=== PATIENT | female | born 1950 | race Caucasian/White ===

== ENCOUNTER 2016-04-05 14:59 | Inpatient (IN) | payer MEDICARE, OTHER ==
[~2016-04-05] VITALS: Ht 157.5 cm; Wt 99.9 kg
[2016-04-05] MEDS ORDERED: SOD CHLORIDE 0.9% 1,000 ML IV STA (17:26)
[2016-04-05] MEDS ORDERED: DILTIAZEM 25 MG INJ IV ONE (17:30)
[2016-04-05] MEDS ORDERED: ASPIRIN 81 MG TAB PO ONE (17:30)
[2016-04-05] MEDS ORDERED: TRAM-40 PO (17:36)
[2016-04-05] MEDS ORDERED: PRAM0.753 PO (17:39)
[2016-04-05] MEDS ORDERED: LEVO100T82 PO (17:39)
[2016-04-05] MEDS ORDERED: OMEP40CA6 PO (17:39)
[2016-04-05] MEDS ORDERED: MIN10 PO (17:40)
[2016-04-05 17:49] LABS: ADD SCAN DIFF NO
--- NOTE | 2016-04-05 17:51 | RADRPT ---
PROCEDURE: XR Chest. CLINICAL INDICATION: Shortness of breath. TECHNIQUE: A single portable view of the chest was obtained. COMPARISON: None FINDINGS: The cardiomediastinal silhouette is within normal limits. The lungs and pleural spaces are clear. The soft tissues and osseous structures are unremarkable. IMPRESSION: No acute cardiopulmonary disease. RPTAT: HPNM Physician Joel Date Time Electronically viewed and signed by Alek Salinas Physician on 04/05/2016 17:50 /
[2016-04-05 17:58] LABS: BASOPHILS % 0.3 % (0.0-2.0); EOSINOPHILS # 0.2 10^3/ul (0.0-0.5); EOSINOPHILS % 2.3 % (0.0-7.0); HEMATOCRIT 38.4 % (37.0-47.0); HEMOGLOBIN 12.8 g/dl (12.0-16.0); LYMPHOCYTES # 2.4 10^3/ul (0.8-2.9); LYMPHOCYTES % 34.4 % (15.0-51.0); MEAN CORPUSCULAR HEMOGLOBIN 28.3 pg (29.0-33.0); MEAN CORPUSCULAR HGB CONC 33.3 g/dl (32.0-37.0); MEAN PLATELET VOLUME 9.4 fl (7.4-10.4); MONOCYTE # 0.6 10^3/ul (0.3-0.9); MONOCYTES % 7.8 % (0.0-11.0); NEUTROPHIL # 3.9 10^3/ul (1.6-7.5); NEUTROPHILS % 55.1 % (39.0-77.0); PLATELET COUNT 286 10^3/UL (140-415); RED BLOOD COUNT 4.52 10^6/ul (4.20-5.40); RED CELL DISTRIBUTION WIDTH 12.4 % (11.5-14.5); WHITE BLOOD COUNT 7.1 10^3/ul (4.8-10.8)
[2016-04-05 18:01] LABS: ALBUMIN 3.8 g/dl (3.3-4.9); CHLORIDE 104 mmol/L (97-110); SODIUM 143 mmol/L (135-144)
[2016-04-05 18:02] LABS: INR 0.84; POTASSIUM 3.8 mmol/L (3.5-5.1); PROTIME 11.5 Sec (12.2-14.2); PT RATIO 0.9
[2016-04-05 18:04] LABS: ALANINE AMINOTRANSFERASE 30 IU/L (13-69); ALBUMIN/GLOBULIN RATIO 1.11; ALKALINE PHOSPHATASE 83 IU/L (42-121); ANION GAP 15 (8-16); ASPARTATE AMINO TRANSFERASE 27 IU/L (15-46); BLOOD UREA NITROGEN 17 mg/dl (7-20); CARBON DIOXIDE 28 mmol/L (21-31); CREATININE 0.61 mg/dl (0.44-1.00); GLUCOSE 102 mg/dl (70-220); TOTAL PROTEIN 7.2 g/dl (6.1-8.1)
[2016-04-05 18:05] LABS: CALCIUM 8.9 mg/dl (8.4-10.2)
[2016-04-05 18:18] LABS: TROPONIN-I 0.031 ng/ml (0.00-0.12)
[2016-04-05 18:23] LABS: FREE T3 5.25 pg/ml (2.77-5.27)
[2016-04-05 18:39] LABS: THYROID STIMULATING HORMONE < 0.015 MIU/L (0.465-4.680)
--- NOTE | 2016-04-05 19:08 | ERA ---
ER Documentation Chief Complaint Date/Time DATE: 04/05/16 TIME: 18:58 Chief Complaint SOB, tachycardia and neck pain x 2 hours. HPI 65-year-old woman presents with chest palpitations, discomfort, shortness of breath. Symptoms began after finishing lunch today and has been present for the last 3 hours prior to my evaluation. She mostly describes palpitations. She denies history of irregular heartbeat or atrial fibrillation, denies heavy alcohol or caffeine intake, no exertional chest pain, no cough, no calf or leg swelling, no fevers or chills, no cough, no vomiting or diarrhea. ROS All systems reviewed and are negative except as per history of present illness. Medications Home Meds Reported Medications Minoxidil* (Lonitin*) 10 Mg Tab, 10 MG PO DAILY, TAB 04/05/16 Levothyroxine Sodium* (Levoxyl*) 100 Mcg Tablet, 100 MCG PO BEFORE BREAKFAST, # 30 TAB 04/05/16 Omeprazole* (Omeprazole*) 40 Mg Capsule.dr, 40 MG PO DAILY, #30 CAP 04/05/16 Pramipexole* (Mirapex*) 0.75 Mg Tablet, 0.75 MG PO DAILY, TAB 04/05/16 Tramadol Hcl* (Ultram*) 50 Mg Tablet, 50 MG PO QHS Y for PAIN, TAB 04/05/16 Allergies Allergies: Coded Allergies: Sulfa (Sulfonamide Antibiotics) (Verified Allergy, Unknown, 04/05/16) PMhx/Soc Hypertension, hypothyroidism Anesthesia Reaction: No Hx Neurological Disorder: No Hx Respiratory Disorders: No Hx Psychiatric Problems: No Hx Alcohol Use: No Hx Substance Use: No Hx Tobacco Use: No Smoking Status: Never smoker FmHx Family History: No diabetes Physical Exam Vitals Vital Signs Date Time Temp Pulse Resp B/P Pulse Ox O2 Delivery O2 Flow Rate FiO2 04/05/16 17:30 Nasal Cannula 3.0 04/05/16 15:05 97.4 144 20 191/109 96 Physical Exam GENERAL: Well-developed, well-nourished, well-hydrated, in no apparent distress , looks nontoxic in appearance HEENT: Moist mucous membranes, pink conjunctiva, no cervical spine tenderness or step-off deformities, no goiter, no jaundice or icterus, extraocular movements intact without pain. No submandibular induration, and no pharyngeal erythema NEURO: Alert and oriented 3, cranial nerves II through XII intact bilaterally, pupils equal round reactive to light, no focal deficits or facial asymmetry, sensation intact distally Strength 5/5 in upper and lower extremities bilaterally CARDIAC: Tachycardic and irregular, no murmurs rubs or gallops LUNGS: Clear bilaterally no wheezing crackles or stridor ABDOMEN: Soft nontender, no guarding, no rigidity, no rebound, no psoas sign no obturator sign. Normoactive bowel sounds SKIN: Warm and dry to touch, no abrasions, contusions, or hematomas, no lacerations, no ecchymosis, no target lesions, and without ulcers EXTREMITIES: No clubbing cyanosis or edema, calves are bilaterally symmetrical, no Homans sign, no popliteal cord sign. Distal pulses equal and bilateral PSYCH: Normal affect without agitation or irritability Result Diagram: 04/05/16172904/05/161729 Results 24 hrs Laboratory Tests Test 04/05/16 17:30 Alanine Aminotransferase (ALT/SGPT) 30IU/L Albumin 3.8g/dl Albumin/Globulin Ratio 1.11 Alkaline Phosphatase 83IU/L Anion Gap 15 Aspartate Amino Transf (AST/SGOT) 27IU/L Basophils # 0.010^3/ul Basophils % 0.3% Blood Urea Nitrogen 17mg/dl Calcium Level 8.9mg/dl Carbon Dioxide Level 28mmol/L Chloride Level 104mmol/L Creatinine 0.61mg/dl Direct Bilirubin 0.00mg/dl Eosinophils # 0.210^3/ul Eosinophils % 2.3% Free Thyroxine 1.97ng/dl Free Triiodothyronine (T3) pg/mL 5.25pg/ml Globulin 3.40g/dl Glucose Level 102mg/dl Hematocrit 38.4% Hemoglobin 12.8g/dl INR International Normalized Ratio 0.84 Indirect Bilirubin 0.0mg/dl Lipase 37U/L Lymphocytes # 2.410^3/ul Lymphocytes % 34.4% Mean Corpuscular Hemoglobin 28.3pg Mean Corpuscular Hemoglobin Concent 33.3g/dl Mean Corpuscular Volume 85.0fl Mean Platelet Volume 9.4fl Monocytes # 0.610^3/ul Monocytes % 7.8% Neutrophils # 3.910^3/ul Neutrophils % 55.1% Nucleated Red Blood Cells # 0.010^3/ul Nucleated Red Blood Cells % 0.0/100WBC Platelet Count 52440^3/UL Potassium Level 3.8mmol/L Prothrombin Time 11.5Sec Prothrombin Time Ratio 0.9 Red Blood Count 4.5210^6/ul Red Cell Distribution Width 12.4% Sodium Level 143mmol/L Thyroid Stimulating Hormone (TSH) < 0.015MIU/L Total Bilirubin 0.0mg/dl Total Protein 7.2g/dl Troponin I 0.031ng/ml White Blood Count 7.110^3/ul Current Medications Medications (Trade) Dose Ordered Sig/Jairo Route PRN Reason Start Time Stop Time Status Last Admin Dose Admin Aspirin (Aspirin) 324 mg ONCE ONCE PO 04/05/16 17:30 04/05/16 17:31 DC 04/05/16 17:37 Diltiazem HCl 20 mg 20 mg ONCE ONCE IV 04/05/16 17:30 04/05/16 17:31 DC 04/05/16 17:37 Sodium Chloride (NS) 1,000 ml @ 1,000 mls/hr Q1H STAT IV 04/05/16 17:26 04/05/16 18:25 DC 04/05/16 17:37 Procedures/MDM IV line was established patient was placed on ekg monitor tech rhythm strip revealed a narrow complex tachycardia at 150 bpm. Patient was afebrile. EKG performed, read by me revealed an atrial fibrillation with rapid ventricular rate at 151 bpm, left axis deviation, narrow QRS complex, no concerning ST elevations or depressions noted. I administered 1 L normal saline intravenously and aspirin 324 mg p.o. for cardioprotective measures. For A. fib with RVR administered diltiazem 20 mg IV with good response. Patient's palpitations and hypertension improved after above intervention. CBC and electrolytes were normal, liver function tests were normal, troponin was negative. Coagulation profile was normal. Chest X-ray 1V Interpreted by me: Soft Tissue: No acute abnormalities Bones: No acute abnormalities Mediastinum/Cardiac Silhouette/Lungs: No acute abnormalities Free T3 and free T4 levels normal EKG #2 performed, read by me revealed an atrial fibrillation rate controlled at 91 bpm, left axis deviation, narrow QRS complex, no concerning ST elevations or depressions noted. Cardiac Critical Care: Time: 37 minutes, this was time separate from other procedures Treatments/Evaluations: Close monitoring for dangerous arrhythmia and cardiovascular collapse, while treating with advance cardiac medications and techniques. Patient's symptoms are concerning for cardiac cause will require inpatient workup and continuous monitoring. Further w/u for ischemia, arrhythmia, PE or dissection will be deferred to the inpatient team. Accepting Care Team: Current data and ongoing care discussed. Time: Time of admission Primary Provider: Hospital Consulting: Cardiology Outstanding Data: none Departure Diagnosis: Primary Impression: Atrial fibrillation with rapid ventricular response Additional Impression: Hypertension Qualified Code: I10 - Essential hypertension Condition: ANGEL Devi MD Apr 05, 2016 19:08
--- NOTE | 2016-04-05 19:49 | HP ---
Date/Time of Note Date/Time of Note DATE: 04/05/16 TIME: 19:41 Assessment/Plan VTE Prophylaxis VTE Prophylaxis Intervention: LMWH Assessment/Plan Assessment/Plan 65 yo female with a past medical history of hypothyroidism, essential hypertension, GERD, RLS, who presents with sudden onset of palpitations. 1. Atrial Fibrillation in RVR - rate now controlled, will admit the patient to telemetry, consult cardiology, cycle cardiac markers, check Mag level, obtain 2D ECHO, full dose lovenox, [id number] score - 3 2. Hypothyroidism - low TSH - will decrease the dose of synthroid, monitor acute changes 3. Essential hypertension - continue with minoxidil, prn lopressor 4. GERD - c/w pepcid 5. RLS - c/w pramipexole 6. GI ppx - pepcid 7. DVT ppx - lovenox answered all of her questions. as per clinical course. this history and physical took greater then 45 minutes to complete HPI/ROS Admit Date/Time Admit Date/Time 04/05/2016, 7:41 pm Hx of Present Illness 65 yo female with a past medical history of hypothyroidism, essential hypertension, GERD, RLS, who presents with sudden onset of palpitations. The patient states that palpitations came around lunch time. She tried walking about five blocks, but got dyspneic. She couldn't even lay on her left side 2/2 to the palpitations. Otherwise she complains of shortness of breath associated with this. Denies any chest pain, loss of consciousness, blurriness in vision, headaches, urinary/bowel irregularities, fevers/chills, nausea/vomiting/diarrhea /constipation, or other constitutional symptoms. She did have an ECHO done in [place], which she had arrived here 3 weeks ago from, 1 year ago that was negative for ischemia or wall motion abnormalities. ED course: aspirin, diltiazem, IVF ROS 14 point review of systems completed, please refer to HPI for any positive findings PMH/Family/Social Past Medical History RLS Medical History: GERD, hypertension, hypothyroid Past Surgical History Bilateral CARLOS, 2 x c-sections, herniated disc repair L4-L5 Family History Significant Family History: diabetes (in grandmother), hypertension Social History Alcohol Use: none Smoking Status: Never smoker Drug Use: none Exam/Review of Systems Vital Signs Vitals Vital Signs Date Time Temp Pulse Resp B/P Pulse Ox O2 Delivery O2 Flow Rate FiO2 04/05/16 18:30 97.4 91 18 140/74 96 Nasal Cannula 3.0 Exam Exam Gen Marjorie: mild distress 2/2 to palpitations, AAOx4 HEENT: NC/AT, PERRLA, EOMI, no pharyngeal erythema, no tonsillar exudates, no lymphadenopathy, no JVD, no carotid bruits NECK: supple, no thyromegaly THORAX: symmetrical, no obvious deformities CV: S1S2, irregularly irregular, no M/G/R Lungs: CTAB no W/C/R/R Abd: soft, NT/ND, +BS, no rebound, no guarding, neg HSM EXT: trace bilateral lower extremity edema, no ecchymosis, no clubbing, FROM Neuro: CN II-XII grossly intact, no focal deficits Psych: good mentation, alert and oriented, good mood and affect Skin: C/D/I Labs Result Diagram: 04/05/16172904/05/161729 Procedures Procedures CXR IMPRESSION: No acute cardiopulmonary disease. LORNE BRIGGS MD Apr 05, 2016 19:49
[2016-04-05] MEDS ORDERED: morphine 2 MG INJ IV PRN (20:00)
[2016-04-05] MEDS ORDERED: LORAZEPAM 2 MG INJ IV PRN (20:00)
[2016-04-05] MEDS ORDERED: ONDANSETRON 4 MG INJ IV PRN (20:00)
[2016-04-05] MEDS ORDERED: NACL 0.9% 3 ML SYG IV SCH (20:00)
[2016-04-05] MEDS ORDERED: METOPROLOL 5 MG INJ IV PRN (20:00)
[2016-04-05] MEDS ORDERED: traMADol 50 MG TAB PO PRN (20:00)
[2016-04-05] MEDS ORDERED: NITROGLYCERIN (SL) 0.4 MG TAB SL PRN (20:00)
[2016-04-05] MEDS ORDERED: DOCUSATE SODIUM 100 MG CAP PO PRN (20:00)
[2016-04-05] MEDS ORDERED: ACETAMINOPHEN 325 MG TAB PO PRN (20:00)
[2016-04-05 20:03] LABS: CHOL/HDL RATIO 4.4 RATIO; MAGNESIUM 1.8 mg/dl (1.7-2.5)
[2016-04-05 20:30] VITALS: TEMP 97.4
[2016-04-05 20:51] LABS: CK-MB 1.23 ng/ml (0.0-2.4)
[2016-04-05 20:54] LABS: TROPONIN-I 0.066 ng/ml (0.00-0.12)
[2016-04-05] MEDS: ENOXAPARIN 100 MG/ML SYG SC SCH (21:49)
[2016-04-05] MEDS: FAMOTIDINE 20 MG TAB PO SCH (21:49)
[2016-04-05 22:18] VITALS: PULSE 112
[2016-04-05 22:22] VITALS: Ht 157.5 cm; Wt 99.9 kg
[2016-04-05 22:26] VITALS: BP 145/83; PULSE 108; RESP 16
[2016-04-05 22:42] LABS: ADD UMIC NO; URINE BILIRUBIN (Dip) NEGATIVE (NEGATIVE); URINE BLOOD (Dip) NEGATIVE (NEGATIVE); URINE COLOR LT. YELLOW (YELLOW); URINE GLUCOSE (Dip) NEGATIVE (NEGATIVE); URINE KETONES (Dip) NEGATIVE (NEGATIVE); URINE LEUKOCYTE ESTERASE (Dip) NEGATIVE (NEGATIVE); URINE NITRITE (Dip) NEGATIVE (NEGATIVE); URINE TOTAL PROTEIN (Dip) NEGATIVE (NEGATIVE); URINE UROBILINOGEN (Dip) 0.2 E.U./dL (0.1-1.0)
[2016-04-06] VITALS (12 sets, daily range): BP systolic 142–186; BP diastolic 67–84; PULSE 80–102; RESP 16–19
[2016-04-06 02:08] LABS: CK-MB 1.34 ng/ml (0.0-2.4)
[2016-04-06 02:11] LABS: TROPONIN-I 0.065 ng/ml (0.00-0.12)
[2016-04-06] MEDS: LEVOTHYROXINE 75 MCG TAB PO SCH (06:05)
[2016-04-06 06:07] LABS: ADD SCAN DIFF NO
[2016-04-06 06:11] LABS: BASOPHILS % 0.4 % (0.0-2.0); EOSINOPHILS # 0.2 10^3/ul (0.0-0.5); EOSINOPHILS % 3.6 % (0.0-7.0); HEMATOCRIT 35.1 % (37.0-47.0); HEMOGLOBIN 11.7 g/dl (12.0-16.0); LYMPHOCYTES # 1.9 10^3/ul (0.8-2.9); LYMPHOCYTES % 39.7 % (15.0-51.0); MEAN CORPUSCULAR HEMOGLOBIN 28.5 pg (29.0-33.0); MEAN CORPUSCULAR HGB CONC 33.3 g/dl (32.0-37.0); MEAN CORPUSCULAR VOLUME 85.4 fl (82.0-101.0); MEAN PLATELET VOLUME 9.4 fl (7.4-10.4); MONOCYTE # 0.5 10^3/ul (0.3-0.9); NEUTROPHIL # 2.2 10^3/ul (1.6-7.5); NEUTROPHILS % 46.3 % (39.0-77.0); PLATELET COUNT 256 10^3/UL (140-415); RED BLOOD COUNT 4.11 10^6/ul (4.20-5.40); RED CELL DISTRIBUTION WIDTH 12.5 % (11.5-14.5); WHITE BLOOD COUNT 4.7 10^3/ul (4.8-10.8)
[2016-04-06 06:34] LABS: POTASSIUM 3.9 mmol/L (3.5-5.1)
[2016-04-06 06:37] LABS: CREATININE 0.5 mg/dl (0.44-1.00)
[2016-04-06 06:38] LABS: CALCIUM 8.3 mg/dl (8.4-10.2)
[2016-04-06] MEDS ORDERED: LEVOTHYROXINE 100 MCG TAB PO SCH (07:00)
[2016-04-06] MEDS: MINOXIDIL 10 MG TAB PO SCH (08:16)
[2016-04-06] MEDS: ASPIRIN 81 MG TAB PO SCH (08:16)
[2016-04-06] MEDS: FAMOTIDINE 20 MG TAB PO SCH ×2 (08:17→21:04)
[2016-04-06] MEDS: PRAMIPEXOLE 0.25 MG TAB PO SCH ×2 (08:17→19:00)
[2016-04-06] MEDS: ENOXAPARIN 100 MG/ML SYG SC SCH (08:18)
--- NOTE | 2016-04-06 12:37 | CONS ---
DATE OF ADMISSION: 04/05/2016 DATE OF CONSULTATION: 04/06/2016 CARDIOLOGY CONSULTATION REFERRING PHYSICIAN: Dr. White REASON FOR EVALUATION: Atrial fibrillation with rapid ventricular response, shortness of breath. HISTORY OF PRESENT ILLNESS: Ms. Choudhary is a 65-year-old woman originally from [place] who has a history of hypothyroidism, hypertension, GERD, history of obesity, who comes to the hospital now for evaluation of atrial fibrillation. The patient said that she felt palpitations yesterday. She say s she had intermittent episodes of palpitations prior, but now they were sustained. When the patien chino came to the hospital she was in atrial fibrillation. She received AV khurram agent therapy and conv erted back to sinus rhythm now. I had a lengthy discussion with the patient and the patient resides in [place] where she has her medical care. I think for now her goal of care would be to optimize her stroke prevention therapy with anticoagulation. Currently the patient is on Lovenox. I think o ral anticoagulation agent might be preferred such as Eliquis or Xarelto which will initiate shortly. The patient thought to be on a beta lila which is continuous. As the patient converted to atri al fibrillation, now will not add an antiarrhythmic especially as the patient is going to travel. F or now, we will continue rate control strategy, hypertension control, and anticoagulation. PAST MEDICAL HISTORY: 1. Hypertension. 2. Dyslipidemia. 3. History of thyroid disease. 4. History of GERD. 5. History of RLS. ALLERGIES: NO KNOWN DRUG ALLERGIES. SOCIAL HISTORY: Does smoke, does not drink, does not use drugs. FAMILY HISTORY: Negative for sudden cardiac or premature coronary artery disease. MEDICATIONS: Include: 1. Aspirin 81 mg a day. 2. Minoxidil 10 mg p.o. once a day. 3. Levothyroxine. 4. Mirapex 0.75 mg. 5. Lopressor. 6. Nitroglycerin. 7. Docusate. 8. Metoprolol tartrate 2.5 IV. REVIEW OF SYSTEMS: CONSTITUTIONAL: No fevers, no chills, tachycardic. HEENT: No changes in vision or hearing. CARDIAC: No chest pain reported now. RESPIRATORY: Short of breath, acute on chronic, only with tachycardia. GASTROINTESTINAL: No nausea, vomiting, diarrhea, constipation. GENITOURINARY: No dysuria, hematuria ____. NEUROLOGIC: No focal neurologic deficits. HEMATOLOGIC: ____. PSYCHIATRIC: No known history of psychiatric disease. PHYSICAL EXAMINATION: VITAL SIGNS: Temperature is 98.1, heart rate is 83, blood pressure 168/82. GENERAL: She is a well-nourished woman in no acute distress, alert and oriented x3, aware of her co ndition. HEAD: Normocephalic, atraumatic. Eyes anicteric. NECK: Supple. JVD 6-7 cm. There is no lymphadenopathy, no thyromegaly. HEART: Regular with soft I/ systolic murmur at the apex. PMI is minimally displaced. There is n o S3. LUNGS: Coarse at bases. ABDOMEN: Distended, bowel sounds are present. There is no hepatosplenomegaly. GENITOURINARY: Grossly intact. EXTREMITIES: Show no evidence of clubbing, cyanosis, edema. LABORATORY DATA: White blood cell 4.7, hemoglobin 11.7, platelets 256. INR is 0.9. Sodium 144, po tassium 3.9. Troponin is negative at 0.066. ASSESSMENT AND PLAN: 1. Atrial fibrillation. The patient has atrial fibrillation, paroxysmal, converted to sinus rhythm now. The patient's CHADS score is greater than 2, recommend full anticoagulation. Oral anticoagul ation would be preferred as the patient will travel. Will also add a beta lila standing dose to her regimen. 2. Hypertension. Blood pressure is still on the high side. I will add an ARB to the patient's reg imen and follow expectedly. 3. Obesity. Significant weight loss advised. 4. Chest pain. The patient did not rule in for ischemia. Troponins are negative. Continue to fol low. 5. Dyslipidemia, ____ is on the high side. Weight loss advised. Consider ____ the patient per [facility] team as warranted. I would like to thank Dr. White for referring this patient for my evaluation. Dictated By: YESSY TOPETE MD ML/NTS Conf#: [id number] DID#: [id number]
--- NOTE | 2016-04-06 14:56 | CONS ---
Date/Time of Note Date/Time of Note DATE: 04/06/16 TIME: 14:49 Assessment/Plan Assessment/Plan Additional Assessment/Plan Chest x-ray was reviewed from yesterday which is essentially clear. Assessment and recommendations; 1. Patient admitted for new onset atrial fibrillation with RVR currently in sinus rhythm. Maintained on beta-lila. 2. History of supplemental thyroid medication intake as a weight loss measure despite having a normal TSH level, that possibly could be a contributing factor for triggering her into atrial fibrillation. 3. Scant cough possibly allergic in etiology. Next Continue current treatment. At this time I would not recommend any antiallergy medications as they could potentially cause cardiac arrhythmia. We will observe over the next day and see how the cough he was. Currently there is no pulmonary pathology. He had been started on anticoagulation for atrial fibrillation as a CVA prevention measure. Consultation Date/Type/Reason Admit Date/Time 04/05/2016, 7:41 pm Date of Consultation: Apr 06, 2016 Type of Consultation: Pulmonary Reason for Consultation Pulmonary consultation obtained for evaluation of cough. History presenting; patient is a very pleasant 65-year-old white lady who came into the emergency room yesterday with complaints of palpitations that started yesterday morning. Upon evaluation patient was diagnosed with atrial fibrillation with rapid ventricular response with a heart rate of 1 51/min. Patient was given Cardizem IV with conversion to sinus rhythm. Patient has remained in sinus rhythm since then. According to her she has been taking supplemental Synthroid as a weight loss measure despite having a normal TSH level for the last year and a half. Patient denies any prior history of atrial fibrillation or any cardiac arrhythmia. For the last couple of hours patient is having a cough which according to her is worse when she lays down in bed but denies any postnasal drip. Denies any sputum production, shortness of breath any wheezing. Denies any chest pain. Past medical history; 1. History of bilateral hip replacement. 2. Restless leg syndrome. 3. Hypertension. 4. No history of any hypothyroidism. Medications; were reviewed. Allergies; all to sulfa drugs. Social history; patient never smoked. No history of alcohol or drug abuse. Family history; patient is she has 2 children. 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 Review of systems; denies any headache, any seizures. Denies any sinus symptoms , postnasal drip. Denies any sore throat. Complains of cough without any sputum production. Denies any chest pain, angina. Denies any emesis. Denies any abdominal pain. Has a history of chronic acid reflux disease. But denies any recent exacerbation. Denies any weight change. Does complain of snoring and excessive daytime sleepiness. Denies any edema. Denies any orthopnea. Does complain of difficulty walking due to hip pain. Denies any further palpitations. Any syncope. General exam; elderly lady currently in no distress sitting in a chair by bedside awake and alert. Past Medical History Medical History: GERD, hypertension, hypothyroid Social History Alcohol Use: none Smoking Status: Never smoker Drug Use: none Exam/Review of Systems Vital Signs Vitals Vital Signs Date Time Temp Pulse Resp B/P Pulse Ox O2 Delivery O2 Flow Rate FiO2 04/06/16 12:05 97.8 89 18 142/67 93 04/06/16 10:14 Nasal Cannula 2.0 Intake and Output 04/05/16 04/05/16 04/06/16 15:00 23:00 07:00 Intake Total 800 ml 240 ml Balance 800 ml 240 ml Exam H EENT examination; supple neck, no JVD. No lymphadenopathy. Midline trachea. No thyromegaly. Pharynx is clear. Patient has good dentition. Pupils are midsize and reactive to light. There is no nasal congestion. Next Chest examination; clear to auscultation bilaterally. S1-S2 audible, no murmurs. Regular rhythm. Abdomen examination; soft, nontender. No nondistended. No organomegaly. Bowel sounds audible. Extremity examination; no peripheral edema. Pulses 2+ bilaterally. No clubbing. [employer] examination; cranial nerves are grossly intact. No focal motor deficit. Results Result Diagram: 04/06/16 0540 04/06/16 0540 Results 24 hrs Laboratory Tests Test 04/05/16 17:30 04/05/16 20:17 04/05/16 22:30 04/06/16 00:25 Alanine Aminotransferase (ALT/SGPT) 30 Albumin 3.8 Albumin/Globulin Ratio 1.11 Alkaline Phosphatase 83 Anion Gap 15 Aspartate Amino Transf (AST/SGOT) 27 Basophils # 0.0 Basophils % 0.3 Blood Urea Nitrogen 17 Calcium Level 8.9 Carbon Dioxide Level 28 Chloride Level 104 Cholesterol Level 214 H Cholesterol/HDL Ratio 4.4 Creatinine 0.61 Direct Bilirubin 0.00 Eosinophils # 0.2 Eosinophils % 2.3 Free Thyroxine 1.97 Free Triiodothyronine (T3) pg/mL 5.25 Globulin 3.40 H Glucose Level 102 HDL Cholesterol 48 Hematocrit 38.4 Hemoglobin 12.8 Hemoglobin A1c 5.6 INR International Normalized Ratio 0.84 Indirect Bilirubin 0.0 LDL Cholesterol, Calculated 124 Lipase 37 Lymphocytes # 2.4 Lymphocytes % 34.4 Magnesium Level 1.8 Mean Corpuscular Hemoglobin 28.3 L Mean Corpuscular Hemoglobin Concent 33.3 Mean Corpuscular Volume 85.0 Mean Platelet Volume 9.4 Monocytes # 0.6 Monocytes % 7.8 Neutrophils # 3.9 Neutrophils % 55.1 Nucleated Red Blood Cells # 0.0 Nucleated Red Blood Cells % 0.0 Platelet Count 286 Potassium Level 3.8 Prothrombin Time 11.5 L Prothrombin Time Ratio 0.9 Red Blood Count 4.52 Red Cell Distribution Width 12.4 Sodium Level 143 Thyroid Stimulating Hormone (TSH) < 0.015 L Total Bilirubin 0.0 L Total Protein 7.2 Triglycerides Level 212 H Troponin I 0.031 0.066 0.065 White Blood Count 7.1 Creatine Kinase 61 54 Creatine Kinase Index 2.0 2.5 Creatinine Kinase MB (Mass) 1.23 1.34 Urine Bilirubin NEGATIVE Urine Clarity CLEAR Urine Color LT. YELLOW Urine Glucose NEGATIVE Urine Hemoglobin NEGATIVE Urine Ketones NEGATIVE Urine Leukocyte Esterase NEGATIVE Urine Nitrite NEGATIVE Urine Specific Alder >=1.030 H Urine Total Protein NEGATIVE Urine Urobilinogen 0.2 E.U./dL Urine pH 5.5 Test 04/06/16 05:40 Anion Gap 14 Basophils # 0.0 Basophils % 0.4 Blood Urea Nitrogen 15 Calcium Level 8.3 L Carbon Dioxide Level 27 Chloride Level 107 Creatinine 0.50 Eosinophils # 0.2 Eosinophils % 3.6 Glucose Level 106 Hematocrit 35.1 L Hemoglobin 11.7 L Lymphocytes # 1.9 Lymphocytes % 39.7 Mean Corpuscular Hemoglobin 28.5 L Mean Corpuscular Hemoglobin Concent 33.3 Mean Corpuscular Volume 85.4 Mean Platelet Volume 9.4 Monocytes # 0.5 Monocytes % 10.0 Neutrophils # 2.2 Neutrophils % 46.3 Nucleated Red Blood Cells # 0.0 Nucleated Red Blood Cells % 0.0 Platelet Count 256 Potassium Level 3.9 Red Blood Count 4.11 L Red Cell Distribution Width 12.5 Sodium Level 144 White Blood Count 4.7 #L Medications Medications Current Medications Lorazepam (Ativan) 0.5 mg Q6H PRN IV ANXIETY; Start 04/05/16 at 20:00 Ondansetron HCl (Zofran Inj) 4 mg Q6H PRN IV NAUSEA AND/OR VOMITING; Start at 20:00 Aspirin (Aspirin) 81 mg DAILY PO Last administered on 04/06/16 08:16; Admin Dose 81 MG; Start 04/06/16 at 09:00 Nitroglycerin (Nitroglycerin (Sl Tab) 0.4 Mg) 1 tab Q5M PRN SL CHEST PAIN; Start 04/05/16 at 20:00 Acetaminophen (Tylenol Tab) 650 mg Q6H PRN PO PAIN LEVEL 1-3 OR FEVER; Start at 20:00 Morphine Sulfate (morphine) 2 mg Q4H PRN IV PAIN LEVEL 7-10; Start 04/05/16 at 20:00 Docusate Sodium (Colace) 100 mg Q12H PRN PO CONSTIPATION; Start 04/05/16 at 20: 00 Famotidine (Pepcid) 20 mg Q12 PO Last administered on 04/06/16 08:17; Admin Dose 20 MG; Start 04/05/16 at 21:00 Metoprolol Tartrate (Lopressor) 2.5 mg Q5M PRN IV DESIRED VENTRICULAR RATE; Start 04/05/16 at 20:00 Minoxidil (Loniten) 10 mg DAILY PO Last administered on 04/06/16 08:16; Admin Dose 10 MG; Start 04/06/16 at 09:00 Pramipexole (Mirapex) 0.75 mg DAILY PO ; Start 04/06/16 at 09:00 Tramadol HCl (Ultram) 50 mg QHS PRN PO PAIN; Start 04/05/16 at 20:00 Apixaban (Eliquis) 5 mg BID PO ; Start 04/06/16 at 21:00 Metoprolol Tartrate (Lopressor) 25 mg BID PO ; Start 04/06/16 at 21:00 Losartan Potassium (Cozaar) 25 mg DAILY PO ; Start 04/07/16 at 09:00 TAWANA CASIANO Apr 06, 2016 14:56
[2016-04-06] MEDS ORDERED: ZOLPIDEM 5 MG TAB PO PRN (16:30)
--- NOTE | 2016-04-06 17:11 | PN ---
Date/Time of Note Date/Time of Note DATE: 04/06/16 TIME: 17:09 Assessment/Plan VTE Prophylaxis VTE Prophylaxis Intervention: LMWH Lines/Catheters [facility]from [facility] Saline Lock Urinary Cath still in place: No Assessment/Plan Chief Complaint/Hosp Course 1. Atrial Fibrillation in RVR-now in Sinus -Cards consult appreciated -cont Eliquis and BB 2. Hypothyroidism - low TSH - will decrease the dose of synthroid, monitor acute changes 3. Essential hypertension-stable -cont BB and ARB 4. GERD - c/w pepcid 5. RLS - c/w pramipexole 6. DAMI -Pulm consult appreciated 7. DVT ppx - Lovenox Dispo- Likely DC in AM Problems: Subjective 24 Hr Interval Summary Constitutional: no complaints Exam/Review of Systems Vital Signs Vitals Vital Signs Date Time Temp Pulse Resp B/P Pulse Ox O2 Delivery O2 Flow Rate FiO2 04/06/16 16:17 86 04/06/16 15:36 98.2 17 146/77 96 04/06/16 10:14 Nasal Cannula 2.0 Intake and Output 04/05/16 04/05/16 04/06/16 15:00 23:00 07:00 Intake Total 800 ml 240 ml Balance 800 ml 240 ml Exam Constitutional: alert, oriented Respiratory: clear to auscultation Cardiovascular: regular rate and rhythm Gastrointestinal: soft, No distended Musculoskeletal: nl extremities to inspection Results Result Diagram: 04/06/16 0540 04/06/16 0540 Results 24 hrs Laboratory Tests Test 04/05/16 17:30 04/05/16 20:17 04/05/16 22:30 04/06/16 00:25 Alanine Aminotransferase (ALT/SGPT) 30 Albumin 3.8 Albumin/Globulin Ratio 1.11 Alkaline Phosphatase 83 Anion Gap 15 Aspartate Amino Transf (AST/SGOT) 27 Basophils # 0.0 Basophils % 0.3 Blood Urea Nitrogen 17 Calcium Level 8.9 Carbon Dioxide Level 28 Chloride Level 104 Cholesterol Level 214 H Cholesterol/HDL Ratio 4.4 Creatinine 0.61 Direct Bilirubin 0.00 Eosinophils # 0.2 Eosinophils % 2.3 Free Thyroxine 1.97 Free Triiodothyronine (T3) pg/mL 5.25 Globulin 3.40 H Glucose Level 102 HDL Cholesterol 48 Hematocrit 38.4 Hemoglobin 12.8 Hemoglobin A1c 5.6 INR International Normalized Ratio 0.84 Indirect Bilirubin 0.0 LDL Cholesterol, Calculated 124 Lipase 37 Lymphocytes # 2.4 Lymphocytes % 34.4 Magnesium Level 1.8 Mean Corpuscular Hemoglobin 28.3 L Mean Corpuscular Hemoglobin Concent 33.3 Mean Corpuscular Volume 85.0 Mean Platelet Volume 9.4 Monocytes # 0.6 Monocytes % 7.8 Neutrophils # 3.9 Neutrophils % 55.1 Nucleated Red Blood Cells # 0.0 Nucleated Red Blood Cells % 0.0 Platelet Count 286 Potassium Level 3.8 Prothrombin Time 11.5 L Prothrombin Time Ratio 0.9 Red Blood Count 4.52 Red Cell Distribution Width 12.4 Sodium Level 143 Thyroid Stimulating Hormone (TSH) < 0.015 L Total Bilirubin 0.0 L Total Protein 7.2 Triglycerides Level 212 H Troponin I 0.031 0.066 0.065 White Blood Count 7.1 Creatine Kinase 61 54 Creatine Kinase Index 2.0 2.5 Creatinine Kinase MB (Mass) 1.23 1.34 Urine Bilirubin NEGATIVE Urine Clarity CLEAR Urine Color LT. YELLOW Urine Glucose NEGATIVE Urine Hemoglobin NEGATIVE Urine Ketones NEGATIVE Urine Leukocyte Esterase NEGATIVE Urine Nitrite NEGATIVE Urine Specific [place] >=1.030 H Urine Total Protein NEGATIVE Urine Urobilinogen 0.2 E.U./dL Urine pH 5.5 Test 04/06/16 05:40 Anion Gap 14 Basophils # 0.0 Basophils % 0.4 Blood Urea Nitrogen 15 Calcium Level 8.3 L Carbon Dioxide Level 27 Chloride Level 107 Creatinine 0.50 Eosinophils # 0.2 Eosinophils % 3.6 Glucose Level 106 Hematocrit 35.1 L Hemoglobin 11.7 L Lymphocytes # 1.9 Lymphocytes % 39.7 Mean Corpuscular Hemoglobin 28.5 L Mean Corpuscular Hemoglobin Concent 33.3 Mean Corpuscular Volume 85.4 Mean Platelet Volume 9.4 Monocytes # 0.5 Monocytes % 10.0 Neutrophils # 2.2 Neutrophils % 46.3 Nucleated Red Blood Cells # 0.0 Nucleated Red Blood Cells % 0.0 Platelet Count 256 Potassium Level 3.9 Red Blood Count 4.11 L Red Cell Distribution Width 12.5 Sodium Level 144 White Blood Count 4.7 #L Medications Medications Current Medications Lorazepam (Ativan) 0.5 mg Q6H PRN IV ANXIETY; Start 04/05/16 at 20:00 Ondansetron HCl (Zofran Inj) 4 mg Q6H PRN IV NAUSEA AND/OR VOMITING; Start at 20:00 Aspirin (Aspirin) 81 mg DAILY PO Last administered on 04/06/16 08:16; Admin Dose 81 MG; Start 04/06/16 at 09:00 Nitroglycerin (Nitroglycerin (Sl Tab) 0.4 Mg) 1 tab Q5M PRN SL CHEST PAIN; Start 04/05/16 at 20:00 Acetaminophen (Tylenol Tab) 650 mg Q6H PRN PO PAIN LEVEL 1-3 OR FEVER; Start at 20:00 Morphine Sulfate (morphine) 2 mg Q4H PRN IV PAIN LEVEL 7-10; Start 04/05/16 at 20:00 Docusate Sodium (Colace) 100 mg Q12H PRN PO CONSTIPATION; Start 04/05/16 at 20: 00 Famotidine (Pepcid) 20 mg Q12 PO Last administered on 04/06/16 08:17; Admin Dose 20 MG; Start 04/05/16 at 21:00 Metoprolol Tartrate (Lopressor) 2.5 mg Q5M PRN IV DESIRED VENTRICULAR RATE; Start 04/05/16 at 20:00 Minoxidil (Loniten) 10 mg DAILY PO Last administered on 04/06/16 08:16; Admin Dose 10 MG; Start 04/06/16 at 09:00 Pramipexole (Mirapex) 0.75 mg DAILY PO ; Start 04/06/16 at 09:00 Tramadol HCl (Ultram) 50 mg QHS PRN PO PAIN; Start 04/05/16 at 20:00 Apixaban (Eliquis) 5 mg BID PO ; Start 04/06/16 at 21:00 Metoprolol Tartrate (Lopressor) 25 mg BID PO ; Start 04/06/16 at 21:00 Losartan Potassium (Cozaar) 25 mg DAILY PO ; Start 04/07/16 at 09:00 Alprazolam (Xanax) 0.5 mg Q8H PRN PO ANXIETY; Start 04/06/16 at 16:30 Zolpidem Tartrate (Ambien) 10 mg HS PRN PO INSOMNIA; Start 04/06/16 at 16:30 ANDREA JAMES Apr 06, 2016 17:11
[2016-04-06] MEDS: METOPROLOL 25 MG TAB PO SCH (21:05)
[2016-04-06] MEDS: ALPRAZOLAM 0.5 MG TAB PO PRN (21:05)
[2016-04-06] MEDS: APIXABAN 5 MG TABLET PO SCH (21:05)
[2016-04-07] VITALS (18 sets, daily range): BP systolic 126–201; BP diastolic 60–95; PULSE 79–106; RESP 18–20
[2016-04-07] MEDS: GUAIFENESIN/CODEINE 5ML CUP PO PRN ×2 (04:29→22:35)
[2016-04-07] MEDS ORDERED: hydrALAzine 20 MG INJ IV PRN (04:30)
[2016-04-07] MEDS ORDERED: hydrALAzine 20 MG INJ IV ONE (06:00)
[2016-04-07 06:22] LABS: ADD SCAN DIFF NO
[2016-04-07 06:53] LABS: BASOPHILS % 0.3 % (0.0-2.0); EOSINOPHILS # 0.2 10^3/ul (0.0-0.5); HEMATOCRIT 38.3 % (37.0-47.0); HEMOGLOBIN 12.6 g/dl (12.0-16.0); LYMPHOCYTES # 2.2 10^3/ul (0.8-2.9); LYMPHOCYTES % 22.2 % (15.0-51.0); MEAN CORPUSCULAR HEMOGLOBIN 28.4 pg (29.0-33.0); MEAN CORPUSCULAR HGB CONC 32.9 g/dl (32.0-37.0); MEAN CORPUSCULAR VOLUME 86.3 fl (82.0-101.0); MEAN PLATELET VOLUME 9.8 fl (7.4-10.4); MONOCYTE # 0.6 10^3/ul (0.3-0.9); MONOCYTES % 6.4 % (0.0-11.0); NEUTROPHIL # 6.7 10^3/ul (1.6-7.5); NEUTROPHILS % 68.1 % (39.0-77.0); PLATELET COUNT 291 10^3/UL (140-415); RED BLOOD COUNT 4.44 10^6/ul (4.20-5.40); RED CELL DISTRIBUTION WIDTH 12.5 % (11.5-14.5); WHITE BLOOD COUNT 9.8 10^3/ul (4.8-10.8)
[2016-04-07 07:07] LABS: POTASSIUM 4.1 mmol/L (3.5-5.1)
[2016-04-07 07:09] LABS: CREATININE 0.58 mg/dl (0.44-1.00)
[2016-04-07 07:10] LABS: CALCIUM 9.1 mg/dl (8.4-10.2); MAGNESIUM 1.8 mg/dl (1.7-2.5)
[2016-04-07] MEDS: MINOXIDIL 10 MG TAB PO SCH (08:21)
[2016-04-07] MEDS: METOPROLOL 25 MG TAB PO SCH ×2 (08:21→20:24)
[2016-04-07] MEDS: ASPIRIN 81 MG TAB PO SCH (08:21)
[2016-04-07] MEDS: APIXABAN 5 MG TABLET PO SCH ×2 (08:22→20:23)
[2016-04-07] MEDS: FAMOTIDINE 20 MG TAB PO SCH ×2 (08:22→20:23)
[2016-04-07] MEDS ORDERED: LOSARTAN 25 MG TAB PO SCH (09:00)
[2016-04-07] MEDS: LEVOTHYROXINE 75 MCG TAB PO SCH (09:36)
[2016-04-07] MEDS: PRAMIPEXOLE 0.25 MG TAB PO SCH (09:40)
[2016-04-07] MEDS ORDERED: PROMETHAZINE/CODEINE 5ML CUP PO PRN (11:30)
[2016-04-07] MEDS ORDERED: PROMETHAZINE/CODEINE 5ML CUP PO ONE (11:30)
[2016-04-07] MEDS ORDERED: LOSARTAN 25 MG TAB PO ONE (11:30)
--- NOTE | 2016-04-07 12:12 | CONS ---
Date/Time of Note Date/Time of Note DATE: 04/07/16 TIME: 12:10 Assessment/Plan Assessment/Plan Additional Assessment/Plan Assessment and recommendations; next 1. Patient admitted with atrial fibrillation with RVR converted to sinus rhythm now off Synthroid supplement. 2. A. fib likely attributed to supplemental Synthroid the patient was taking for weight loss. 3. No history of hypothyroidism. 4. Likely patient developing acute bronchitis with occasional wheezing. Continue current treatment. Add Xopenex 1.25 mg every 6 hours scheduled at least for 4 doses. Add oral Zithromax 500 mg daily. Continue other supportive measures. Consultation Date/Type/Reason Admit Date/Time Apr 05, 2016 at 19:24 Initial Consult Date 04/06/16 Type of Consultation: Pulmonary 24 HR Interval Summary Free Text/Dictation Patient is complaining of cough with yellow sputum production for the last 1 day now increased in frequency over the last 24 hours. Denies any sinus congestion postnasal drip. Complains of occasional wheezing as well. Denies any chest pain, any palpitations. Any shortness of breath. General examination; elderly lady, currently in no distress awake and alert. Exam/Review of Systems Vital Signs Vitals Vital Signs Date Time Temp Pulse Resp B/P Pulse Ox O2 Delivery O2 Flow Rate FiO2 04/07/16 12:03 93 04/07/16 11:16 98.4 18 145/65 96 04/07/16 11:15 Nasal Cannula 2.0 Intake and Output 04/06/16 04/06/16 04/07/16 15:00 23:00 07:00 Intake Total 850 ml 750 ml Balance 850 ml 750 ml Exam HEENT examination; supple neck, no JVD. No lymphadenopathy. Midline trachea. Pharynx is clear. Pupils are small bilaterally. Chest examination; diminished but clear breath sounds bilaterally. S1-S2 audible, no murmurs. Regular rhythm. Abdomen examination; soft, no organomegaly. No tenderness. Bowel sounds audible. Extremity examination; no peripheral edema. HOME DEMONSTRATOR examination; no focal deficit. Results Result Diagram: 04/07/16 0450 04/07/16 0450 Results 24 hrs Laboratory Tests Test 04/07/16 04:50 Anion Gap 15 Basophils # 0.0 Basophils % 0.3 Blood Urea Nitrogen 16 Calcium Level 9.1 Carbon Dioxide Level 28 Chloride Level 104 Creatinine 0.58 Eosinophils # 0.2 Eosinophils % 2.0 Glucose Level 117 Hematocrit 38.3 Hemoglobin 12.6 Lymphocytes # 2.2 Lymphocytes % 22.2 Magnesium Level 1.8 Mean Corpuscular Hemoglobin 28.4 L Mean Corpuscular Hemoglobin Concent 32.9 Mean Corpuscular Volume 86.3 Mean Platelet Volume 9.8 Monocytes # 0.6 Monocytes % 6.4 Neutrophils # 6.7 Neutrophils % 68.1 Nucleated Red Blood Cells # 0.0 Nucleated Red Blood Cells % 0.0 Platelet Count 291 Potassium Level 4.1 Red Blood Count 4.44 Red Cell Distribution Width 12.5 Sodium Level 143 White Blood Count 9.8 # Medications Medications Current Medications Lorazepam (Ativan) 0.5 mg Q6H PRN IV ANXIETY; Start 04/05/16 at 20:00 Ondansetron HCl (Zofran Inj) 4 mg Q6H PRN IV NAUSEA AND/OR VOMITING Last administered on 04/07/16 06:55; Admin Dose 4 MG; Start 04/05/16 at 20:00 Aspirin (Aspirin) 81 mg DAILY PO Last administered on 04/07/16 08:21; Admin Dose 81 MG; Start 04/06/16 at 09:00 Nitroglycerin (Nitroglycerin (Sl Tab) 0.4 Mg) 1 tab Q5M PRN SL CHEST PAIN; Start 04/05/16 at 20:00 Acetaminophen (Tylenol Tab) 650 mg Q6H PRN PO PAIN LEVEL 1-3 OR FEVER; Start at 20:00 Morphine Sulfate (morphine) 2 mg Q4H PRN IV PAIN LEVEL 7-10; Start 04/05/16 at 20:00 Docusate Sodium (Colace) 100 mg Q12H PRN PO CONSTIPATION; Start 04/05/16 at 20: 00 Famotidine (Pepcid) 20 mg Q12 PO Last administered on 04/07/16 08:22; Admin Dose 20 MG; Start 04/05/16 at 21:00 Metoprolol Tartrate (Lopressor) 2.5 mg Q5M PRN IV DESIRED VENTRICULAR RATE; Start 04/05/16 at 20:00 Minoxidil (Loniten) 10 mg DAILY PO Last administered on 04/07/16 08:21; Admin Dose 10 MG; Start 04/06/16 at 09:00 Tramadol HCl (Ultram) 50 mg QHS PRN PO PAIN; Start 04/05/16 at 20:00 Apixaban (Eliquis) 5 mg BID PO Last administered on 04/07/16 08:22; Admin Dose 5 MG; Start 04/06/16 at 21:00 Metoprolol Tartrate (Lopressor) 25 mg BID PO Last administered on 04/07/16 08: 21; Admin Dose 25 MG; Start 04/06/16 at 21:00 Alprazolam (Xanax) 0.5 mg Q8H PRN PO ANXIETY Last administered on 04/06/16 21: 05; Admin Dose 0.5 MG; Start 04/06/16 at 16:30 Zolpidem Tartrate (Ambien) 10 mg HS PRN PO INSOMNIA; Start 04/06/16 at 16:30 Hydralazine HCl (Apresoline) 10 mg Q4H PRN IV SYSTOLIC B/P ABOVE 160 Last administered on 04/07/16 04:31; Admin Dose 10 MG; Start 04/07/16 at 04:30 Guaifenesin/ Codeine Phosphate (Robitussin Ac Liquid Cup) 10 ml Q4H PRN PO COUGH Last administered on 04/07/16 04:29; Admin Dose 10 ML; Start 04/07/16 at 04:30 Pramipexole (Mirapex) 0.75 mg 17 PO ; Start 04/07/16 at 17:00 Losartan Potassium (Cozaar) 50 mg DAILY PO ; Start 04/08/16 at 09:00 Promethazine HCl/ Codeine (Phenergan/ Codeine) 5 ml Q4H PRN PO COUGH; Start at 11:30 TAWANA CASIANO Apr 07, 2016 12:12
--- NOTE | 2016-04-07 13:20 | RADRPT ---
Echocardiogram Report Patient Name: ANGELA HERRERA Gender: Female Date: 1950 Study Date: 06-Apr-2016 Day Worker: Jeff Silveira [facility] Location: [id number] Ref. Physician: LORNE BRIGGS Quality: Good Procedures: Transthoracic echocardiogram with complete 2D, M-Mode, and doppler examination. Indications: Atrial Fibrillation. 2D/M Mode Doppler Measurement Value Normal Ranges Measurement Value Normal Ranges LVIDd 2D 4.4 3.5 - 5.6 cm AV Peak Renan 1.5 m/sec LVIDs 2D 2.4 2.1 - 4.1 cm AV Peak PG 9.1 mmHg LVPWd 2D 1.2 0.6 - 1.1 cm LVOT Peak Renan 1.4 m/sec IVSd 2D 1.2 0.6 - 1.1 cm LVOT Peak PG 8.1 mmHg AoR Diam 2D 2.4 2.0 - 3.7 cm MV E Peak Renan 0.7 m/sec EDV 2D 85.9 cm3 MV A Peak Renan 0.6 m/sec ESV 2D 13.3 cm3 MV E/A 1.2 LA Dimen 2D 3.8 2.3 - 4.0 cm MV Decel Time 177 msec MV Decel Moore 4 MV E/A 1.2 Findings Left Ventricle: Normal left ventricular systolic function. Normal left ventricular cavity size. Mild concentric left ventricular hypertrophy. Ejection fraction is visually estimated at 65 %. Tissue Doppler/Mitral Doppler indices are indeterminate in this study due to the presence of atrial fibrillation. Right Ventricle: Normal right ventricular size. Normal right ventricular systolic function. Left Atrium: The left atrium is normal in size. Right Atrium: The right atrium is normal in size. Mitral Valve: Mitral valve leaflets appear mildly thickened. Mild mitral annular calcification. Trace mitral regurgitation. Aortic Valve: Normal appearance of the aortic valve. No significant aortic stenosis or insufficiency. Tricuspid Valve: Normal appearance of the tricuspid valve. Unable to obtain RVSP due to minimal presence of tricuspid regurgitation. Pulmonic Valve: Normal pulmonic valve appearance. Pericardium: Normal pericardium with no significant pericardial effusion. Aorta: Normal aortic root. IVC: Normal size and normal respiratory collapse consistent with normal right atrial pressure. Conclusions 1.Normal left ventricular systolic function. Normal left ventricular cavity size. Mild concentric left ventricular hypertrophy. Ejection fraction is visually estimated at 65 %. Tissue Doppler/Mitral Doppler indices are indeterminate in this study due to the presence of atrial fibrillation. 2.Normal appearance of the tricuspid valve. Unable to obtain RVSP due to minimal presence of tricuspid regurgitation. 3.Mitral valve leaflets appear mildly thickened. Mild mitral annular calcification. Trace mitral regurgitation. Electronically Signed By: Cody Canales 07-Apr-2016 13:19:45 -0800 Patient Name: ANGELA HERRERA Study Date: 06-Apr-2016 [id number]
[2016-04-07] MEDS: LEVALBUTEROL (NEB) 1.25 MG/0.5 ML AMP HHN SCH ×2 (14:33→19:41)
--- NOTE | 2016-04-07 14:52 | CONS ---
Date/Time of Note Date/Time of Note DATE: 04/07/16 TIME: 14:50 Assessment/Plan Assessment/Plan Additional Assessment/Plan 1. Atrial fibrillation. The patient has atrial fibrillation, paroxysmal, converted to sinus rhythm now. The patient's CHADS score is greater than 2, recommend full anticoagulation. Oral anticoagulation would be preferred as the patient will travel. Will also add a beta lila standing dose to her regimen. DOING WELL sinus now. 2. Hypertension. Blood pressure is still on the high side. I will add an ARB to the patient's regimen and follow expectedly. Add Rx as needed. 3. Obesity. Significant weight loss advised. 4. Chest pain. The patient did not rule in for ischemia. Troponins are negative. Continue to follow. 5. Dyslipidemia- Weight loss advised. 6. Bronchitis - on anti-Bx now. Consultation Date/Type/Reason Admit Date/Time Apr 05, 2016 at 19:24 Initial Consult Date 04/06/16 Type of Consultation: Pulmonary 24 HR Interval Summary Free Text/Dictation NO acute change - in sinus - con't current Rx. ROS: No fever, no chills, no nausea, no vomiting, no diarrhea/constipation No recent weight changes No chest pain, no PND, no orthopnea No dizziness, blurred vision No thirst, no heat or cold intolerance + cough Exam/Review of Systems Vital Signs Vitals Vital Signs Date Time Temp Pulse Resp B/P Pulse Ox O2 Delivery O2 Flow Rate FiO2 04/07/16 14:40 2.0 04/07/16 14:33 106 18 95 Nasal Cannula 04/07/16 11:16 98.4 145/65 Intake and Output 04/06/16 04/06/16 04/07/16 15:00 23:00 07:00 Intake Total 850 ml 750 ml Balance 850 ml 750 ml Exam General: WN/WD/NAD, AOx 3 HEENT: Unicetric/atraumatic/EOMI (follows commands) NECK: JVD elevated, no thyromegaly Lymph: no lymphadenopathy HEART: regular with no S3, II/ systolic murmur at apex LUNGS: Coarse sounds ABD: soft, NT, ND, +BS : Intact Neuro: non focal SKIN: chronic changes EXT: trace edema Results Result Diagram: 04/07/160 04/07/16449 Results 24 hrs Laboratory Tests Test 04/07/16 04:50 Anion Gap 15 Basophils # 0.0 Basophils % 0.3 Blood Urea Nitrogen 16 Calcium Level 9.1 Carbon Dioxide Level 28 Chloride Level 104 Creatinine 0.58 Eosinophils # 0.2 Eosinophils % 2.0 Glucose Level 117 Hematocrit 38.3 Hemoglobin 12.6 Lymphocytes # 2.2 Lymphocytes % 22.2 Magnesium Level 1.8 Mean Corpuscular Hemoglobin 28.4 L Mean Corpuscular Hemoglobin Concent 32.9 Mean Corpuscular Volume 86.3 Mean Platelet Volume 9.8 Monocytes # 0.6 Monocytes % 6.4 Neutrophils # 6.7 Neutrophils % 68.1 Nucleated Red Blood Cells # 0.0 Nucleated Red Blood Cells % 0.0 Platelet Count 291 Potassium Level 4.1 Red Blood Count 4.44 Red Cell Distribution Width 12.5 Sodium Level 143 White Blood Count 9.8 # Medications Medications Current Medications Lorazepam (Ativan) 0.5 mg Q6H PRN IV ANXIETY; Start 04/05/16 at 20:00 Ondansetron HCl (Zofran Inj) 4 mg Q6H PRN IV NAUSEA AND/OR VOMITING Last administered on 04/07/16 06:55; Admin Dose 4 MG; Start 04/05/16 at 20:00 Aspirin (Aspirin) 81 mg DAILY PO Last administered on 04/07/16 08:21; Admin Dose 81 MG; Start 04/06/16 at 09:00 Nitroglycerin (Nitroglycerin (Sl Tab) 0.4 Mg) 1 tab Q5M PRN SL CHEST PAIN; Start 04/05/16 at 20:00 Acetaminophen (Tylenol Tab) 650 mg Q6H PRN PO PAIN LEVEL 1-3 OR FEVER; Start at 20:00 Morphine Sulfate (morphine) 2 mg Q4H PRN IV PAIN LEVEL 7-10; Start 04/05/16 at 20:00 Docusate Sodium (Colace) 100 mg Q12H PRN PO CONSTIPATION; Start 04/05/16 at 20: 00 Famotidine (Pepcid) 20 mg Q12 PO Last administered on 04/07/16 08:22; Admin Dose 20 MG; Start 04/05/16 at 21:00 Metoprolol Tartrate (Lopressor) 2.5 mg Q5M PRN IV DESIRED VENTRICULAR RATE; Start 04/05/16 at 20:00 Minoxidil (Loniten) 10 mg DAILY PO Last administered on 04/07/16 08:21; Admin Dose 10 MG; Start 04/06/16 at 09:00 Tramadol HCl (Ultram) 50 mg QHS PRN PO PAIN; Start 04/05/16 at 20:00 Apixaban (Eliquis) 5 mg BID PO Last administered on 04/07/16 08:22; Admin Dose 5 MG; Start 04/06/16 at 21:00 Metoprolol Tartrate (Lopressor) 25 mg BID PO Last administered on 04/07/16 08: 21; Admin Dose 25 MG; Start 04/06/16 at 21:00 Alprazolam (Xanax) 0.5 mg Q8H PRN PO ANXIETY Last administered on 04/06/16 21: 05; Admin Dose 0.5 MG; Start 04/06/16 at 16:30 Zolpidem Tartrate (Ambien) 10 mg HS PRN PO INSOMNIA; Start 04/06/16 at 16:30 Hydralazine HCl (Apresoline) 10 mg Q4H PRN IV SYSTOLIC B/P ABOVE 160 Last administered on 04/07/16 04:31; Admin Dose 10 MG; Start 04/07/16 at 04:30 Guaifenesin/ Codeine Phosphate (Robitussin Ac Liquid Cup) 10 ml Q4H PRN PO COUGH Last administered on 04/07/16 04:29; Admin Dose 10 ML; Start 04/07/16 at 04:30 Pramipexole (Mirapex) 0.75 mg 17 PO ; Start 04/07/16 at 17:00 Losartan Potassium (Cozaar) 50 mg DAILY PO ; Start 04/08/16 at 09:00 Promethazine HCl/ Codeine (Phenergan/ Codeine) 5 ml Q4H PRN PO COUGH; Start at 11:30 Azithromycin (Zithromax) 500 mg DAILY PO ; Start 04/08/16 at 09:00 YESSY TOPETE MD Apr 07, 2016 14:52
[2016-04-07] MEDS ORDERED: PRAMIPEXOLE 0.25 MG TAB PO SCH (17:00)
--- NOTE | 2016-04-07 18:02 | PN ---
Date/Time of Note Date/Time of Note DATE: 04/07/16 TIME: 18:00 Assessment/Plan VTE Prophylaxis VTE Prophylaxis Intervention: LMWH Lines/Catheters IV [facility]ter Type (from [facility] Saline Lock Assessment/Plan Chief Complaint/Hosp Course 1. Atrial Fibrillation in RVR-now in Sinus -Cards consult appreciated -cont Eliquis and BB 2. Hypothyroidism - low TSH - will decrease the dose of synthroid, monitor acute changes 3. Essential hypertension-stable -cont BB and ARB 4. GERD - c/w pepcid 5. RLS - c/w pramipexole 6. DAMI -Pulm consult appreciated 7. Persistent cough -Phenergan with Codeine and Azithro DVT ppx - Lovenox Dispo- Likely DC in AM Problems: Subjective 24 Hr Interval Summary Respiratory: cough Exam/Review of Systems Vital Signs Vitals Vital Signs Date Time Temp Pulse Resp B/P Pulse Ox O2 Delivery O2 Flow Rate FiO2 04/07/16 16:07 101 04/07/16 15:20 98.4 18 155/67 97 04/07/16 14:40 2.0 04/07/16 14:33 Nasal Cannula Intake and Output 04/06/16 04/06/16 04/07/16 15:00 23:00 07:00 Intake Total 850 ml 750 ml Balance 850 ml 750 ml Exam Constitutional: alert, oriented Respiratory: clear to auscultation Cardiovascular: regular rate and rhythm Gastrointestinal: soft, No distended Musculoskeletal: nl extremities to inspection Results Result Diagram: 04/07/16 0450 04/07/16 0450 Results 24 hrs Laboratory Tests Test 04/07/16 04:50 Anion Gap 15 Basophils # 0.0 Basophils % 0.3 Blood Urea Nitrogen 16 Calcium Level 9.1 Carbon Dioxide Level 28 Chloride Level 104 Creatinine 0.58 Eosinophils # 0.2 Eosinophils % 2.0 Glucose Level 117 Hematocrit 38.3 Hemoglobin 12.6 Lymphocytes # 2.2 Lymphocytes % 22.2 Magnesium Level 1.8 Mean Corpuscular Hemoglobin 28.4 L Mean Corpuscular Hemoglobin Concent 32.9 Mean Corpuscular Volume 86.3 Mean Platelet Volume 9.8 Monocytes # 0.6 Monocytes % 6.4 Neutrophils # 6.7 Neutrophils % 68.1 Nucleated Red Blood Cells # 0.0 Nucleated Red Blood Cells % 0.0 Platelet Count 291 Potassium Level 4.1 Red Blood Count 4.44 Red Cell Distribution Width 12.5 Sodium Level 143 White Blood Count 9.8 # Medications Medications Current Medications Lorazepam (Ativan) 0.5 mg Q6H PRN IV ANXIETY; Start 04/05/16 at 20:00 Ondansetron HCl (Zofran Inj) 4 mg Q6H PRN IV NAUSEA AND/OR VOMITING Last administered on 04/07/16 06:55; Admin Dose 4 MG; Start 04/05/16 at 20:00 Aspirin (Aspirin) 81 mg DAILY PO Last administered on 04/07/16 08:21; Admin Dose 81 MG; Start 04/06/16 at 09:00 Nitroglycerin (Nitroglycerin (Sl Tab) 0.4 Mg) 1 tab Q5M PRN SL CHEST PAIN; Start 04/05/16 at 20:00 Acetaminophen (Tylenol Tab) 650 mg Q6H PRN PO PAIN LEVEL 1-3 OR FEVER; Start at 20:00 Morphine Sulfate (morphine) 2 mg Q4H PRN IV PAIN LEVEL 7-10; Start 04/05/16 at 20:00 Docusate Sodium (Colace) 100 mg Q12H PRN PO CONSTIPATION; Start 04/05/16 at 20: 00 Famotidine (Pepcid) 20 mg Q12 PO Last administered on 04/07/16 08:22; Admin Dose 20 MG; Start 04/05/16 at 21:00 Metoprolol Tartrate (Lopressor) 2.5 mg Q5M PRN IV DESIRED VENTRICULAR RATE; Start 04/05/16 at 20:00 Minoxidil (Loniten) 10 mg DAILY PO Last administered on 04/07/16 08:21; Admin Dose 10 MG; Start 04/06/16 at 09:00 Tramadol HCl (Ultram) 50 mg QHS PRN PO PAIN; Start 04/05/16 at 20:00 Apixaban (Eliquis) 5 mg BID PO Last administered on 04/07/16 08:22; Admin Dose 5 MG; Start 04/06/16 at 21:00 Metoprolol Tartrate (Lopressor) 25 mg BID PO Last administered on 04/07/16 08: 21; Admin Dose 25 MG; Start 04/06/16 at 21:00 Alprazolam (Xanax) 0.5 mg Q8H PRN PO ANXIETY Last administered on 04/06/16 21: 05; Admin Dose 0.5 MG; Start 04/06/16 at 16:30 Zolpidem Tartrate (Ambien) 10 mg HS PRN PO INSOMNIA; Start 04/06/16 at 16:30 Hydralazine HCl (Apresoline) 10 mg Q4H PRN IV SYSTOLIC B/P ABOVE 160 Last administered on 04/07/16 04:31; Admin Dose 10 MG; Start 04/07/16 at 04:30 Guaifenesin/ Codeine Phosphate (Robitussin Ac Liquid Cup) 10 ml Q4H PRN PO COUGH Last administered on 04/07/16 04:29; Admin Dose 10 ML; Start 04/07/16 at 04:30 Pramipexole (Mirapex) 0.75 mg 17 PO Last administered on 04/07/16 17:31; Admin Dose 0.75 MG; Start 04/07/16 at 17:00 Losartan Potassium (Cozaar) 50 mg DAILY PO ; Start 04/08/16 at 09:00 Promethazine HCl/ Codeine (Phenergan/ Codeine) 5 ml Q4H PRN PO COUGH Last administered on 04/07/16 17:36; Admin Dose 5 ML; Start 04/07/16 at 11:30 Azithromycin (Zithromax) 500 mg DAILY PO ; Start 04/07/16 at 18:00 ANDREA JAMES Apr 07, 2016 18:02
[2016-04-07] MEDS: AZITHROMYCIN 250 MG TAB PO SCH (18:04)
[2016-04-07] MEDS: ALPRAZOLAM 0.5 MG TAB PO PRN (22:35)
[2016-04-08] VITALS (8 sets, daily range): BP systolic 112–140; BP diastolic 53–58; PULSE 79–93; RESP 18–20
[2016-04-08] MEDS: LEVALBUTEROL (NEB) 1.25 MG/0.5 ML AMP HHN SCH ×3 (02:29→14:00)
[2016-04-08] MEDS: LEVOTHYROXINE 75 MCG TAB PO SCH (06:47)
[2016-04-08 07:32] LABS: ADD SCAN DIFF NO
[2016-04-08 07:41] LABS: BASOPHILS % 0.2 % (0.0-2.0); EOSINOPHILS # 0.2 10^3/ul (0.0-0.5); EOSINOPHILS % 1.8 % (0.0-7.0); HEMATOCRIT 33.3 % (37.0-47.0); HEMOGLOBIN 10.5 g/dl (12.0-16.0); LYMPHOCYTES # 2.1 10^3/ul (0.8-2.9); LYMPHOCYTES % 23.1 % (15.0-51.0); MEAN CORPUSCULAR HEMOGLOBIN 27.9 pg (29.0-33.0); MEAN CORPUSCULAR HGB CONC 31.5 g/dl (32.0-37.0); MEAN CORPUSCULAR VOLUME 88.3 fl (82.0-101.0); MONOCYTE # 0.8 10^3/ul (0.3-0.9); MONOCYTES % 9.3 % (0.0-11.0); NEUTROPHIL # 5.8 10^3/ul (1.6-7.5); NEUTROPHILS % 65.4 % (39.0-77.0); PLATELET COUNT 234 10^3/UL (140-415); RED BLOOD COUNT 3.77 10^6/ul (4.20-5.40); WHITE BLOOD COUNT 8.9 10^3/ul (4.8-10.8)
[2016-04-08 07:50] LABS: POTASSIUM 3.6 mmol/L (3.5-5.1)
[2016-04-08 07:52] LABS: CREATININE 0.8 mg/dl (0.44-1.00)
[2016-04-08 07:53] LABS: CALCIUM 8.3 mg/dl (8.4-10.2); MAGNESIUM 1.7 mg/dl (1.7-2.5)
[2016-04-08] MEDS: ASPIRIN 81 MG TAB PO SCH (08:41)
[2016-04-08] MEDS: APIXABAN 5 MG TABLET PO SCH (08:41)
[2016-04-08] MEDS: FAMOTIDINE 20 MG TAB PO SCH (08:42)
[2016-04-08] MEDS: MINOXIDIL 10 MG TAB PO SCH (08:42)
[2016-04-08] MEDS: METOPROLOL 25 MG TAB PO SCH (08:42)
[2016-04-08] MEDS: AZITHROMYCIN 250 MG TAB PO SCH (08:42)
[2016-04-08] MEDS ORDERED: LOSARTAN 50 MG TAB PO SCH (09:00)
[2016-04-08] MEDS ORDERED: AZITHROMYCIN 250 MG TAB PO SCH (09:00)
--- NOTE | 2016-04-08 11:43 | CONS ---
Date/Time of Note Date/Time of Note DATE: 04/08/16 TIME: 11:40 Assessment/Plan Assessment/Plan Additional Assessment/Plan Assessment recommendations; 1. Patient admitted with A. fib with rapid ventricular response now in sinus rhythm. 2. Patient has been on supplemental Synthroid as a weight loss measure that possibly could be contributing to episode of atrial fibrillation. 3. Acute bronchitis with significant improvement after being started on Xopenex and Zithromax. 4. History of hypertension. Patient likely would be discharged home today. I would recommend continuation of Zithromax at least four more days in conjunction with either Xopenex or albuterol via MDI every 4 hours as needed until her symptoms improve. I will sign off. Thanks for the consult. Consultation Date/Type/Reason Admit Date/Time Apr 05, 2016 at 19:24 Initial Consult Date 04/06/16 Type of Consultation: Pulmonary 24 HR Interval Summary Free Text/Dictation Patient is reporting marked improvement in her cough and chest congestion. Denies any wheezing, palpitations or shortness of breath. General exam; elderly lady, currently in no distress awake and alert. Exam/Review of Systems Vital Signs Vitals Vital Signs Date Time Temp Pulse Resp B/P Pulse Ox O2 Delivery O2 Flow Rate FiO2 04/08/16 11:19 98.4 84 18 140/55 97 04/08/16 08:51 Nasal Cannula 2.0 Intake and Output 04/07/16 04/07/16 04/08/16 15:00 23:00 07:00 Intake Total 800 ml 500 ml Balance 800 ml 500 ml Exam HEENT examination; supple neck, no JVD no lymphadenopathy midline trachea no thyromegaly pharynx is clear. Chest examination; clear to auscultation bilaterally. S1-S2 audible, no murmurs. Regular rhythm. Abdomen examination; soft, no organomegaly. Extremity examination; no peripheral edema. 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 Results Result Diagram: 04/08/16 0605 04/08/16 0605 Results 24 hrs Laboratory Tests Test 04/08/16 06:05 Anion Gap 16 Basophils # 0.0 Basophils % 0.2 Blood Urea Nitrogen 24 H Calcium Level 8.3 L Carbon Dioxide Level 26 Chloride Level 104 Creatinine 0.80 Eosinophils # 0.2 Eosinophils % 1.8 Glucose Level 91 Hematocrit 33.3 L Hemoglobin 10.5 L Lymphocytes # 2.1 Lymphocytes % 23.1 Magnesium Level 1.7 Mean Corpuscular Hemoglobin 27.9 L Mean Corpuscular Hemoglobin Concent 31.5 L Mean Corpuscular Volume 88.3 Mean Platelet Volume 10.0 Monocytes # 0.8 Monocytes % 9.3 Neutrophils # 5.8 Neutrophils % 65.4 Nucleated Red Blood Cells # 0.0 Nucleated Red Blood Cells % 0.0 Platelet Count 234 Potassium Level 3.6 Red Blood Count 3.77 L Red Cell Distribution Width 13.0 Sodium Level 142 White Blood Count 8.9 Medications Medications Current Medications Lorazepam (Ativan) 0.5 mg Q6H PRN IV ANXIETY; Start 04/05/16 at 20:00 Ondansetron HCl (Zofran Inj) 4 mg Q6H PRN IV NAUSEA AND/OR VOMITING Last administered on 04/07/16 06:55; Admin Dose 4 MG; Start 04/05/16 at 20:00 Aspirin (Aspirin) 81 mg DAILY PO Last administered on 04/08/16 08:41; Admin Dose 81 MG; Start 04/06/16 at 09:00 Nitroglycerin (Nitroglycerin (Sl Tab) 0.4 Mg) 1 tab Q5M PRN SL CHEST PAIN; Start 04/05/16 at 20:00 Acetaminophen (Tylenol Tab) 650 mg Q6H PRN PO PAIN LEVEL 1-3 OR FEVER Last administered on 04/08/16 04:55; Admin Dose 650 MG; Start 04/05/16 at 20:00 Morphine Sulfate (morphine) 2 mg Q4H PRN IV PAIN LEVEL 7-10; Start 04/05/16 at 20:00 Docusate Sodium (Colace) 100 mg Q12H PRN PO CONSTIPATION; Start 04/05/16 at 20: 00 Famotidine (Pepcid) 20 mg Q12 PO Last administered on 04/08/16 08:42; Admin Dose 20 MG; Start 04/05/16 at 21:00 Metoprolol Tartrate (Lopressor) 2.5 mg Q5M PRN IV DESIRED VENTRICULAR RATE; Start 04/05/16 at 20:00 Minoxidil (Loniten) 10 mg DAILY PO Last administered on 04/08/16 08:42; Admin Dose 10 MG; Start 04/06/16 at 09:00 Tramadol HCl (Ultram) 50 mg QHS PRN PO PAIN; Start 04/05/16 at 20:00 Apixaban (Eliquis) 5 mg BID PO Last administered on 04/08/16 08:41; Admin Dose 5 MG; Start 04/06/16 at 21:00 Metoprolol Tartrate (Lopressor) 25 mg BID PO Last administered on 04/08/16 08: 42; Admin Dose 25 MG; Start 04/06/16 at 21:00 Alprazolam (Xanax) 0.5 mg Q8H PRN PO ANXIETY Last administered on 04/07/16 22: 35; Admin Dose 0.5 MG; Start 04/06/16 at 16:30 Zolpidem Tartrate (Ambien) 10 mg HS PRN PO INSOMNIA; Start 04/06/16 at 16:30 Hydralazine HCl (Apresoline) 10 mg Q4H PRN IV SYSTOLIC B/P ABOVE 160 Last administered on 04/07/16 04:31; Admin Dose 10 MG; Start 04/07/16 at 04:30 Guaifenesin/ Codeine Phosphate (Robitussin Ac Liquid Cup) 10 ml Q4H PRN PO COUGH Last administered on 04/07/16 22:35; Admin Dose 10 ML; Start 04/07/16 at 04:30 Pramipexole (Mirapex) 0.75 mg 17 PO Last administered on 04/07/16 17:31; Admin Dose 0.75 MG; Start 04/07/16 at 17:00 Losartan Potassium (Cozaar) 50 mg DAILY PO Last administered on 04/08/16 08:42 ; Admin Dose 50 MG; Start 04/08/16 at 09:00 Promethazine HCl/ Codeine (Phenergan/ Codeine) 5 ml Q4H PRN PO COUGH Last administered on 04/07/16 17:36; Admin Dose 5 ML; Start 04/07/16 at 11:30 Azithromycin (Zithromax) 500 mg DAILY PO Last administered on 04/08/16 08:42; Admin Dose 500 MG; Start 04/07/16 at 18:00 TAWANA CASIANO Apr 08, 2016 11:43
--- NOTE | 2016-04-08 12:11 | CONS ---
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 or decrease dose -Continue losrtan -D/C planning Problems: Consultation Date/Type/Reason Admit Date/Time Apr 05, 2016 at 19:24 Initial Consult Date 04/06/16 Type of Consultation: Cardiology Reason for Consultation AF Referring Provider: ANDREA JAMES Exam/Review of Systems Vital Signs Vitals Vital Signs Date Time Temp Pulse Resp B/P Pulse Ox O2 Delivery O2 Flow Rate FiO2 04/08/16 12:04 79 04/08/16 11:19 98.4 18 140/55 97 04/08/16 08:51 Nasal Cannula 2.0 Intake and Output 04/07/16 04/07/16 04/08/16 15:00 23:00 07:00 Intake Total 800 ml 500 ml Balance 800 ml 500 ml Exam Review of Systems: CONSTITUTIONAL: No fevers, chills. PULMONARY: No sob CARDIOVASCULAR: No chest pain/palpitations GASTROINTESTINAL: No nausea/vomiting. GENITOURINARY: No hematuria/dysuria. MUSCULOSKELETAL: No myagias/arthalgias. PSYCHIATRIC: The patient denies depression. NEUROLOGIC: No weakness Constitutional: alert, oriented Psych: no complaints Head: normocephalic ENMT: mucosa pink and moist Neck: jvd (8 cm water), supple Respiratory: diminished breath sounds Cardiovascular: regular rate and rhythm Gastrointestinal: non-tender, soft Musculoskeletal: muscle tone (normal) Extremities: edema (None) Neurological: other (No focal deficits) Results Result Diagram: 04/08/16 0604/08/16 06 Results 24 hrs Laboratory Tests Test 04/08/16 06:05 Anion Gap 16 Basophils # 0.0 Basophils % 0.2 Blood Urea Nitrogen 24 H Calcium Level 8.3 L Carbon Dioxide Level 26 Chloride Level 104 Creatinine 0.80 Eosinophils # 0.2 Eosinophils % 1.8 Glucose Level 91 Hematocrit 33.3 L Hemoglobin 10.5 L Lymphocytes # 2.1 Lymphocytes % 23.1 Magnesium Level 1.7 Mean Corpuscular Hemoglobin 27.9 L Mean Corpuscular Hemoglobin Concent 31.5 L Mean Corpuscular Volume 88.3 Mean Platelet Volume 10.0 Monocytes # 0.8 Monocytes % 9.3 Neutrophils # 5.8 Neutrophils % 65.4 Nucleated Red Blood Cells # 0.0 Nucleated Red Blood Cells % 0.0 Platelet Count 234 Potassium Level 3.6 Red Blood Count 3.77 L Red Cell Distribution Width 13.0 Sodium Level 142 White Blood Count 8.9 Medications Medications Current Medications Lorazepam (Ativan) 0.5 mg Q6H PRN IV ANXIETY; Start 04/05/16 at 20:00 Ondansetron HCl (Zofran Inj) 4 mg Q6H PRN IV NAUSEA AND/OR VOMITING Last administered on 04/07/16 06:55; Admin Dose 4 MG; Start 04/05/16 at 20:00 Aspirin (Aspirin) 81 mg DAILY PO Last administered on 04/08/16 08:41; Admin Dose 81 MG; Start 04/06/16 at 09:00 Nitroglycerin (Nitroglycerin (Sl Tab) 0.4 Mg) 1 tab Q5M PRN SL CHEST PAIN; Start 04/05/16 at 20:00 Acetaminophen (Tylenol Tab) 650 mg Q6H PRN PO PAIN LEVEL 1-3 OR FEVER Last administered on 04/08/16 04:55; Admin Dose 650 MG; Start 04/05/16 at 20:00 Morphine Sulfate (morphine) 2 mg Q4H PRN IV PAIN LEVEL 7-10; Start 04/05/16 at 20:00 Docusate Sodium (Colace) 100 mg Q12H PRN PO CONSTIPATION; Start 04/05/16 at 20: 00 Famotidine (Pepcid) 20 mg Q12 PO Last administered on 04/08/16 08:42; Admin Dose 20 MG; Start 04/05/16 at 21:00 Metoprolol Tartrate (Lopressor) 2.5 mg Q5M PRN IV DESIRED VENTRICULAR RATE; Start 04/05/16 at 20:00 Minoxidil (Loniten) 10 mg DAILY PO Last administered on 04/08/16 08:42; Admin Dose 10 MG; Start 04/06/16 at 09:00 Tramadol HCl (Ultram) 50 mg QHS PRN PO PAIN; Start 04/05/16 at 20:00 Apixaban (Eliquis) 5 mg BID PO Last administered on 04/08/16 08:41; Admin Dose 5 MG; Start 04/06/16 at 21:00 Metoprolol Tartrate (Lopressor) 25 mg BID PO Last administered on 04/08/16 08: 42; Admin Dose 25 MG; Start 04/06/16 at 21:00 Alprazolam (Xanax) 0.5 mg Q8H PRN PO ANXIETY Last administered on 04/07/16 22: 35; Admin Dose 0.5 MG; Start 04/06/16 at 16:30 Zolpidem Tartrate (Ambien) 10 mg HS PRN PO INSOMNIA; Start 04/06/16 at 16:30 Hydralazine HCl (Apresoline) 10 mg Q4H PRN IV SYSTOLIC B/P ABOVE 160 Last administered on 04/07/16 04:31; Admin Dose 10 MG; Start 04/07/16 at 04:30 Guaifenesin/ Codeine Phosphate (Robitussin Ac Liquid Cup) 10 ml Q4H PRN PO COUGH Last administered on 04/07/16 22:35; Admin Dose 10 ML; Start 04/07/16 at 04:30 Pramipexole (Mirapex) 0.75 mg 17 PO Last administered on 04/07/16 17:31; Admin Dose 0.75 MG; Start 04/07/16 at 17:00 Losartan Potassium (Cozaar) 50 mg DAILY PO Last administered on 04/08/16 08:42 ; Admin Dose 50 MG; Start 04/08/16 at 09:00 Promethazine HCl/ Codeine (Phenergan/ Codeine) 5 ml Q4H PRN PO COUGH Last administered on 04/07/16 17:36; Admin Dose 5 ML; Start 04/07/16 at 11:30 Azithromycin (Zithromax) 500 mg DAILY PO Last administered on 04/08/16 08:42; Admin Dose 500 MG; Start 04/07/16 at 18:00 JAGRUTI QUIROZ Apr 08, 2016 12:11
[2016-04-08] MEDS ORDERED: UDROBAC PO (12:14)
[2016-04-08] MEDS ORDERED: LORA-441 PO (12:14)
[2016-04-08] MEDS ORDERED: METO50TA16 PO (12:14)
[2016-04-08] MEDS ORDERED: ASPI81TA3 PO (12:14)
[2016-04-08] MEDS ORDERED: LOSA50TA6 PO (12:14)
[2016-04-08] MEDS ORDERED: AZIT500T2 PO (12:14)
--- NOTE | 2016-04-08 12:21 | PDOCDIS ---
Discharge Instructions CONDITION Patient Condition: Good HOME CARE INSTRUCTIONS: Diet Instructions: Reduced Calorie ACTIVITY: Activity Restrictions: No Restrictions FOLLOW UP/APPOINTMENTS Appointments F/U WITH YOUR PCP IN 1-2 WEEKS ANDREA JAMES Apr 08, 2016 12:21
--- NOTE | 2016-04-08 17:52 | DS ---
DATE OF ADMISSION: 04/05/2016 DATE OF DISCHARGE: 04/08/2016 DISCHARGE DIAGNOSES: 1. Atrial fibrillation, likely secondary to Synthroid use used for weight loss, resolved. Synthroid discharged with aspirin and beta lila. 2. Hypertension, stable, discharged with ARB and beta lila. 3. Gastroesophageal reflux disease. Continue home Pepcid. 4. Restless leg syndrome. Continue home medications. 5. Obstructive sleep apnea. Pulmonology consult appreciated. The patient to follow up with a sleep study as an outpatient. 6. Bronchitis. Discharged with Phenergan with codeine and azithromycin. 7. Obesity. The patient has been using Synthroid for weight loss. The patient does not have any h ypothyroidism, advised to stop using Synthroid. HOSPITAL COURSE: The patient is a 65-year-old female with a history of obesity, hypertension, GERD, restless leg syndrome. Patient presents with atrial fibrillation with RVR and palpitations. The p atient did convert to a sinus rhythm. The patient was seen by cardiology and was started on aspirin as well as Eliquis. The patient did stay in sinus rhythm. TSH was checked and TSH was low. She s tated that she does not have hypothyroidism and was taking Synthroid for weight loss. The patient a lso had signs of bronchitis. She was given Phenergan with codeine and started on antibiotics. She wanted a pulmonology consultation as she feels that she has sleep apnea. 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 The patient's cough did imp rove and she was felt to be stable for discharge with aspirin and beta lila. No indication for E liquis. She stayed in sinus rhythm and the cause of the atrial fibrillation was from taking Synthro id when she did not have hypothyroidism. On the day of discharge, the patient's vitals, labs, and ph ysical exam were stable. She had no acute complaints and questions were answered. CONDITION ON DISCHARGE: Stable. DISPOSITION: To home. MEDICATIONS: Patient is to continue her home medications, but she was told to stop taking her Synth roid, which once again she was taking for weight loss and she does not have any history of hypothyro idism. The patient was given new prescriptions for: 1. Aspirin 81 daily. 2. Z-Josh. 3. Phenergan with codeine. 4. Ativan 0.5 p.o. q.8 p.r.n. for anxiety. 5. Losartan 50 daily. 6. Metoprolol XL 50 daily. FOLLOWUP: The patient is to follow up with her PCP in 1 to 2 weeks and is to follow up with a sleep study for evaluation for sleep apnea. Greater than 30 minutes was spent coordinating discharge of patient. Dictated By: ANDREA RAMIREZ/DONTRELL Conf#: [id number] DID#: [id number]
== END 2016-04-08 13:45 | disposition home or self-care (01) | DRG 309 ==
LOC: E/R 14:59 → TEL 19:24
PROVIDERS: ADMIT Student in an Organized Health Care Education/Training Program; ATTEND Student in an Organized Health Care Education/Training Program
DX: I48.0 Paroxysmal atrial fibrillation (principal); Z68.41 Body mass index [BMI] 40.0-44.9, adult; I10 Essential (primary) hypertension; E03.9 Hypothyroidism, unspecified; K21.9 Gastro-esophageal reflux disease without esophagitis; G25.81 Restless legs syndrome; Z96.643 Presence of artificial hip joint, bilateral; E78.5 Hyperlipidemia, unspecified; E66.9 Obesity, unspecified; Z88.2 Allergy status to sulfonamides; G47.33 Obstructive sleep apnea (adult) (pediatric); J40 Bronchitis, not specified as acute or chronic
CPT/HCPCS: 36415; 71010; 80048; 80053; 80061; 81003; 82550; 82553; 83036; 83690; 83735; 84439; 84443; 84481; 84484; 85025; 85610; 93005; 93306; 94640; 94664; 96372; 96374; J0360; J1650; J2405; J7030